=== PATIENT | female | born 1990 | race Caucasian/White ===

== ENCOUNTER 2016-10-30 09:24 | Inpatient (IN) | payer OTHER ==
[2016-10-30] MEDS ORDERED: POLYCILLIN/NS 2 GM/100 ML 2 GM/100 ML BAG IV ONE ×2 (09:54→13:00)
[2016-10-30] MEDS ORDERED: LACTATED RINGERS 1,000 ML ONE (09:54)
[2016-10-30] MEDS ORDERED: PITOCin/NS 20 UNIT/1000ML DRIP 20,000 MILLIUNITS/1,000 ML BAG IV ONE (10:31)
[2016-10-30] MEDS ORDERED: XYLOCAINE 2% INFILTRATI ONE ×2 (10:40→11:06)
[2016-10-30] MEDS ORDERED: NORCO 5/325 PO PRN (11:06)
[2016-10-30] MEDS ORDERED: MINERAL OIL PO PRN (11:06)
[2016-10-30] MEDS ORDERED: TUCKS PAD TP PRN (11:08)
[2016-10-30] MEDS ORDERED: DERMOPLAST TP PRN (11:08)
[2016-10-30] MEDS ORDERED: PROCTOSOL-HC PR PRN (11:09)
--- NOTE | 2016-10-30 11:10 | History and Physical Report ---
History of Present Illness Date of examination: 10/30/16 Date of admission: 10/30/16 09:54 History of present illness: 26 yio EDC by LMp 10/30/16 @ 40.3 weeks gestation second stage labor. First trimester entry intro care @ 10 weeks gestation. Uncomplicated course. She is GBS positive. Past History Past Medical History: no pertinent history Past Surgical History: no surgical history Family/Genetic History: none Social history: - Obstetrical History Expected Date of Delivery: 10/30/16 Actual Gestation: 40 Week(s) 0 Day(s) : 3 Para: 2 Hx # Term Pregnancies: 2 Number of Living Children: 2 Medications and Allergies Allergies Allergy/AdvReac Type Severity Reaction Status Date / Time No Known Allergies Allergy Verified 08/15/14 11:39 Home Medications Medication Instructions Recorded Confirmed Last Taken Type HYDROcodone/APAP 5-325 [[place] 2 each PO Q6H PRN #20 tablet 08/16/14 Unknown Rx 5-325 mg TAB] Ibuprofen [Motrin 600 MG tab] 600 mg PO Q6HR PRN #30 tablet 08/16/14 Unknown Rx Review of Systems All systems: negative Breasts: normal Genitourinary: deferred, normal appearance, vaginal bleeding, contractions, other (hemorroids), no vaginal discharge, no leakage of fluid Rectal Exam: hemorrhoids - Vital Signs Vital signs: Vital Signs Pulse BP 86 121/60 10/30/16 11:00 10/30/16 11:00 Temp Pulse Resp BP Pulse Ox 100 H 122/60 10/30/16 11:02 10/30/16 11:02 - Physical Exam Breasts: Positive: deferred Abdomen: Positive: normal appearance, soft Genitourinary (Female): Positive: normal external genitalia, normal perenium. Negative: perineal/vulvar lesions Vulva: both: normal Vagina: Positive: normal moisture - Obstetrical FHR: category 1 Uterine Contraction Monitor Mode: External Cervical Dilatation: 10 Cervical Effacement Percentage: 100 station: -1 Uterine Contraction Pattern: Regular Uterine Tone Measurement Phase: Resting Uterine Contraction Intensity: Strong/Firm Results Result Diagrams: 10/30/16 10:13 All other labs normal. Assessment and Plan A: IUP at term, second stage labor +GBS, inadequate treatment EFW 8lbs P: SROM-clear Pushing with maternal urge
--- NOTE | 2016-10-30 11:12 | Procedure Note ---
OB Delivery Note - Delivery Date of Delivery: 10/30/16 (8-14oz male @ 1039) Surgeon: SUSAN SON Estimated blood loss: 200cc - Vaginal Delivery presentation: vertex Delivery position: OP Intrapartum events: precipitous labor- <3hr Delivery induction: none Delivery monitor: external FHT, external uterine Route of delivery: Delivery placenta: spontaneous Delivery cord: 3 umbilical vessels Episiotomy: none Delivery laceration: 2nd degree (36.[address]) Anesthesia: none - Infant A at 1 minute: 8 (AROM-clear fluid. viable male in OP position, over intact perineum. Dried, suctioned and placed skin to skin. Cord blood collected. Spont placenta. Pitocin infusing. FF@ U,ML, clots expressed. Repair of second degree lacertation with 3.0 Vicry and Lidocaine 2%.) at 5 minutes: 9 Infant Gender: Male
[2016-10-30 11:50] LABS: Hematocrit 40.3 % (30.3-42.9); Hemoglobin 13.6 gm/dl (10.1-14.3); Mean Corpuscular HGB Conc 34 % (30-34); Mean Corpuscular Hemoglobin 31 pg (28-32); Mean Corpuscular Volume 92 fl (79-97); Platelet Count 190 K/mm3 (140-440); Red Blood Count 4.37 M/mm3 (3.65-5.03); Red Cell Distribution Width 12.9 % (13.2-15.2); White Blood Count 11.8 K/mm3 (4.5-11.0)
[2016-10-30] MEDS ORDERED: PITOCin/NS 30 UNIT/500ML 30 UNIT/500 ML BAG IV SCH (12:00)
[2016-10-30] MEDS ORDERED: BRETHINE IVP PRN (12:35)
[2016-10-30] MEDS ORDERED: BRETHINE SUB-Q PRN (12:35)
[2016-10-30] MEDS ORDERED: ePHEDrine SULFATE IV PRN (12:36)
[2016-10-30] MEDS ORDERED: LACTATED RINGERS 1,000 ML IV SCH (12:37)
[2016-10-30] MEDS ORDERED: PITOCin/NS 20 UNIT/1000ML DRIP 20 UNIT/1,000 ML BAG IV SCH (13:00)
[2016-10-30] MEDS ORDERED: POLYCILLIN/NS 1 GM/50 ML 1 GM/50 ML BAG IV SCH (15:07)
[2016-10-30] MEDS: MOTRIN PO PRN (18:07)
[2016-10-30 23:49] LABS: Hematocrit 32.8 % (30.3-42.9); Hemoglobin 11.3 gm/dl (10.1-14.3)
--- NOTE | 2016-10-31 08:36 | Progress Note ---
Assessment and Plan A: PPD#1 s/p at term P: Routine care. Discharge tomorrow morning. Subjective - Subjective Date of service: 10/31/16 Principal diagnosis: s/p at term Interval history: No issues overnight. Patient reports: appetite normal, voiding normally, pain well controlled, ambulating normally, no nauseated : doing well Objective - Vital Signs Latest vital signs: Vital Signs Temp Pulse Pulse Resp BP BP 10/31/16 00:00 98.9 F 74 20 116/63 10/30/16 20:00 98.2 F 80 20 118/60 10/30/16 16:06 98.6 F 74 18 94/54 10/30/16 13:04 98.4 F 82 20 106/62 10/30/16 11:32 77 117/58 10/30/16 11:17 90 119/59 10/30/16 11:02 100 H 122/60 10/30/16 11:00 86 121/60 Intake and Output 10/30/16 10/31/16 10/31/16 22:59 06:59 14:59 Intake Total 985 120 Balance 985 120 Intake: IV 625 PITOCin/NS 20 UNIT/1000ML 625 DRIP 20 unit In 1,000 ml @ 125 mls/hr IV DIRECT KELLEY Rx#:[id number] Oral 120 120 Intake, Free Water 240 Other: Total, Intake Amount 120 120 # Voids Void 1 1 - Exam Breasts: Present: deferred Cardiovascular: Present: Regular rate Lungs: Present: Clear to auscultation Abdomen: Present: soft (obese) Uterus: Present: fundal height at umbilicus Extremities: Present: normal - Labs Labs: Abnormal lab results 10/30/16 Range/Units 10:13 WBC 11.8 H (4.5-11.0) K/mm3 RDW 12.9 L (13.2-15.2) %
[2016-10-31] MEDS: MOTRIN PO PRN ×2 (08:37→19:56)
--- NOTE | 2016-10-31 08:39 | Discharge Summary ---
Providers - Providers Date of Admission: 10/30/16 09:54 Date of discharge: 11/01/16 Attending physician: SHAVON PORTER Primary care physician: SHAVON PORTER Hospitalization Reason for admission: active labor Delivery: Procedure details: Please see delivery note. Episiotomy: none Laceration: 2nd degree Other procedures: none complications: none Discharge diagnosis: IUP at term delivered baby: male Hospital course: Patient underwent spontaneous vaginal delivery which she tolerated well. On day #2 she met discharge criteria. Condition at discharge: Stable Disposition: DISCHARGED TO HOME OR SELFCARE - Discharge Diagnoses (1) Term of male Status: Acute (2) Obesity Status: Acute Qualifiers: Obesity type: O Obesity severity: O Plan - Discharge Medications Prescriptions: HYDROcodone/APAP 5-325 [[place] 5/325] 1 each PO Q6HR PRN #30 tablet PRN Reason: Pain Ibuprofen [Motrin] 800 mg PO Q8HR PRN #30 tablet PRN Reason: Pain - Provider Discharge Summary Activity: no sex for 6 weeks, no heavy lifting 4 weeks, no strenuous exercise Additional instructions: [] Smoking cessation referral if applicable(refer to patient education folder for contact #) [] Refer to [facility] Booklet Call your doctor immediately for: * Fever > 100.5 * Heavy vaginal bleeding ( >1 pad per hour) * Severe persistent headache * Shortness of breath * Reddened, hot, painful area to leg or breast * Drainage or odor from incision. * Keep incision clean and dry at all times and follow doctor's instructions regarding bathing/showering Schedule circumcision for your son if desired before he is one month old. - Follow up plan Follow up: SUSAN SON CNM [Advanced Practice Nurse] - 11/27/16 ( exam )
[2016-11-01] MEDS: MOTRIN PO PRN (09:00)
[2016-11-01 09:03] VITALS: BP 115/65
== END 2016-11-01 12:05 | disposition home or self-care (01) | DRG 775 ==
LOC: TRG 09:24 → LD 09:54 → OB 13:18
PROVIDERS: ADMIT Obstetrics & Gynecology; ATTEND Obstetrics & Gynecology
PROC: 10E0XZZ Delivery of Products of Conception, External Approach (ICD-10-PCS; principal; 2016-10-30)
PROC: 0KQM0ZZ Repair Perineum Muscle, Open Approach (ICD-10-PCS; 2016-10-30)
DX: O62.3 Precipitate labor (principal); O99.214 Obesity complicating childbirth; Z37.0 Single live birth; O99.824 Streptococcus B carrier state complicating childbirth; O70.1 Second degree perineal laceration during delivery; Z3A.40 40 weeks gestation of pregnancy; Z68.39 Body mass index [BMI] 39.0-39.9, adult; O42.92 Full-term premature rupture of membranes, unspecified as to length of time between rupture and onset of labor
CPT/HCPCS: 36415; 85014; 85018; 85027; 86850; 86900; 86901; 99211; G0463; J0290; J2590; J7120